=== PATIENT | male | born 1970 | race Caucasian/White ===

== ENCOUNTER 2024-05-05 07:49 | Emergency (ER) | payer OTHER ==
[2024-05-05] MEDS ORDERED: ONDANSETRON 4 MG/2 ML VIAL ONE ×2 (08:06→10:11)
[2024-05-05] MEDS ORDERED: MORPHINE 4 MG/ML SYR ONE (08:07)
[2024-05-05] MEDS ORDERED: KETOROLAC 30 MG/ML INJ ONE (08:07)
[2024-05-05 08:29] LABS: Absolute Basophils 0.1 K/uL (0-0.5); Absolute Eosinophils 0.1 K/uL (0-0.5); Absolute Lymphocytes (CBC) 1.3 K/uL (0.7-4.9); Absolute Monocytes 0.7 K/uL (0.1-1.3); Absolute Neutrophil 10.3 K/uL (1.8-8.0); Basophils % 0.6 % (0-1.3); Eosinophils % 0.7 % (0-4.4); Hematocrit 51.3 % (39.6-49.0); Hemoglobin 16.7 g/dL (13.6-17.9); Lymphocytes % 10.5 % (15.3-44.8); MCH 29.5 pg (27.0-35.0); MCHC 32.6 g/dL (32.0-36.0); MCV 90.5 fL (80-100); MPV 7.8 fL (7.6-11.3); Monocytes % 5.9 % (3.3-12.3); Neutrophils % 82.3 % (41.7-73.7); Platelets 285 thou/uL (152-406); RBC Red Blood Cell Count 5.67 M/uL (4.33-5.43); Red Cell Distribution Width 13.7 % (12.1-15.2)
--- NOTE | 2024-05-05 08:30 | RAD REPORT ---
EXAMINATION: CT ABDOMEN AND PELVIS WITHOUT CONTRAST CLINICAL INDICATION: ABD PAIN TECHNIQUE: CT abdomen and pelvis was performed, without IV contrast, as per department protocol. Axia l, sagittal and coronal reconstructions were obtained. One or more of the following dose reduction techniques were used: Automated exposure control, adjustment of the mA and kV according to the patien t size, and iterative reconstruction. Unless otherwise specified, incidental findings do not require dedicated imaging follow-up. COMPARISON: 07/13/2008 FINDINGS: The lack of intravenous contrast limits the sensitivity of this exam for evaluation of solid visceral organs, vascular structures, and retroperitoneum. LOWER CHEST: The visualized lung bases are clear. LIVER: There is a 15 mm cyst superior anterior right lobe of the liver suspected. No aggressive liver lesion or biliary dilatation. Cholecystectomy clips. SPLEEN: Normal size. No focal lesion. PANCREAS: No mass, ductal dilation, or shelby-pancreatic fluid. ADRENALS: Normal; no mass. KIDNEYS AND URETERS: 4 mm calculus is seen at the left UVJ resulting in mild left hydronephrosis and hydroureter. No right-sided stone or hydronephrosis. URINARY BLADDER: Normal contour. GASTROINTESTINAL TRACT: No evidence of bowel obstruction, significant free fluid, free air or abscess . Sigmoid diverticulosis coli without diverticulitis. APPENDIX: Normal appendix. LYMPH NODES: No lymphadenopathy. MUSCULOSKELETAL: Moderate lower lumbar degenerative changes. ADDITIONAL FINDINGS: None. IMPRESSION: 4 mm stone left UVJ resulting in mild left hydronephrosis.
[2024-05-05] MEDS ORDERED: Levofloxacin500mg IV 500 MG/100 ML BAG IV ONE (08:31)
[2024-05-05] MEDS ORDERED: NA CHLORIDE 0.9% 1,000 ML ONE ×2 (08:31→09:10)
[2024-05-05] MEDS ORDERED: FAMOTIDINE 20 MG/2 ML VIAL IV ONE (08:31)
[2024-05-05 08:37] LABS: Albumin 3.7 g/dL (3.4-5.0); Albumin/Globulin Ratio 0.9 (1.1-1.8); Anion Gap 6.1 mEq/L (5.0-15.0); Bilirubin Total 0.7 mg/dL (0.2-1.0); Globulin 3.9 g/dL (2.3-3.5); Potassium 4.1 mEq/L (3.5-5.1); Protein, Total 7.6 g/dL (6.4-8.2)
[2024-05-05] MEDS ORDERED: TAMSULOSIN 0.4 MG SR CAP ONE (09:10)
[2024-05-05] MEDS ORDERED: HYDROMORPHONE HCL 1 MG/ML INJ ONE ×2 (09:10→10:11)
--- NOTE | 2024-05-05 09:10 | RAD REPORT ---
EXAMINATION: ULTRASOUND DUPLEX OF SCROTUM AND TESTICLES CLINICAL INDICATION: Male, 53 years, PAIN TECHNIQUE: Duplex scan of the scrotal contents was performed including real-time color and spectral D oppler ultrasonography with arterial inflow and venous outflow. COMPARISON: CT dated same date FINDINGS: RIGHT TESTICLE AND EPIDIDYMIS: The right testicle is normal in size, measuring 3.3 x 2.4 x 1.8 cm. Normal, homogeneous echotexture with no focal lesion seen. The right epididymis is normal. Color Doppler flow in the right testicle is normal. LEFT TESTICLE AND EPIDIDYMIS: The left testicle is normal in size, measuring 3.2 x 1.7 x 2.2 cm. Normal, homogeneous echotexture with no focal lesion seen. The left epididymis is normal. Color Doppler flow in the left testicle is normal. ADDITIONAL FINDINGS: None. IMPRESSION: No acute or significant abnormalities.
--- NOTE | 2024-05-05 09:23 | EDPHYS ---
Physician Documentation [facility] Name: Ashu Perez Age: 53 yrs Sex: Male : 1970 Arrival Date: 05/05/2024 Time: 07:49 Bed 4 Private MD: John Chaney ED Physician Yahir Almaguer HPI: 05/05 09:01 This 53 yrs old Male presents to ER via Ambulatory with complaints of Low juan francisco Back Pain, Testicular Pain. 09:01 The patient presents with pain that is acute, with no known mechanism of injury. The juan francisco symptoms are located in the left low back and left mid back. The pain radiates to the left low back and left mid back. The problem was sustained from unknown cause. Onset: The symptoms/episode began/occurred just prior to arrival. Modifying factors: The patient symptoms are alleviated by nothing, the patient symptoms are aggravated by nothing. Associated signs and symptoms: The patient has no apparent associated signs or symptoms. Severity of symptoms: At their worst the symptoms were moderate, in the emergency department the symptoms are unchanged. The patient has not experienced similar symptoms in the past. Historical: - Allergies: 08:02 No Known Allergies; iw - PMHx: 08:02 neck pain; prostate cancer; iw - PSHx: 08:02 prostate; iw - Immunization history:: Adult Immunizations up to date. - Infectious Disease History:: Denies. - Social history:: Smoking status: Patient reports the use of cigarette tobacco products. - Family history:: not pertinent. ROS: 09:01 Constitutional: Negative for fever, chills, and weight loss, Eyes: Negative for injury, juan francisco pain, redness, and discharge, ENT: Negative for injury, pain, and discharge, Neck: Negative for injury, pain, and swelling, Cardiovascular: Negative for chest pain, palpitations, and edema, Respiratory: Negative for shortness of breath, cough, wheezing, and pleuritic chest pain, Back: Negative for injury and pain, : Negative for injury, bleeding, discharge, and swelling, MS/Extremity: Negative for injury and deformity, Skin: Negative for injury, rash, and discoloration, Neuro: Negative for headache, weakness, numbness, tingling, and seizure, Psych: Negative for depression, anxiety, suicide ideation, homicidal ideation, and hallucinations, Allergy/Immunology: Negative for hives, rash, and allergies, Endocrine: Negative for neck swelling, polydipsia, polyuria, polyphagia, and marked weight changes, Hematologic/Lymphatic: Negative for swollen nodes, abnormal bleeding, and unusual bruising, 09:01 Abdomen/GI: Positive for abdominal pain, of the anterior aspect of left lateral abdomen, posterior aspect of left lateral abdomen and left lower quadrant, Exam: 09:01 Constitutional: This is a well developed, well nourished patient who is awake, alert, juan francisco and in no acute distress. Head/Face: Normocephalic, atraumatic. Eyes: Pupils equal round and reactive to light, extra-ocular motions intact. Lids and lashes normal. Conjunctiva and sclera are non-icteric and not injected. Cornea within normal limits. Periorbital areas with no swelling, redness, or edema. ENT: Nares patent. No nasal discharge, no septal abnormalities noted. Tympanic membranes are normal and external auditory canals are clear. Oropharynx with no redness, swelling, or masses, exudates, or evidence of obstruction, uvula midline. Mucous membranes moist. Neck: Trachea midline, no thyromegaly or masses palpated, and no cervical lymphadenopathy. Supple, full range of motion without nuchal rigidity, or vertebral point tenderness. No Meningismus. Chest/axilla: Normal chest wall appearance and motion. Nontender with no deformity. No lesions are appreciated. Cardiovascular: Regular rate and rhythm with a normal S1 and S2. No gallops, murmurs, or rubs. Normal PMI, no JVD. No pulse deficits. Respiratory: Lungs have equal breath sounds bilaterally, clear to auscultation and percussion. No rales, rhonchi or wheezes noted. No increased work of breathing, no retractions or nasal flaring. Back: No spinal tenderness. No costovertebral tenderness. Full range of motion. Skin: Warm, dry with normal turgor. Normal color with no rashes, no lesions, and no evidence of cellulitis. MS/ Extremity: Pulses equal, no cyanosis. Neurovascular intact. Full, normal range of motion. Neuro: Awake and alert, GCS 15, oriented to person, place, time, and situation. Cranial nerves II-XII grossly intact. Motor strength 5/5 in all extremities. Sensory grossly intact. Cerebellar exam normal. Normal gait. Psych: Awake, alert, with orientation to person, place and time. Behavior, mood, and affect are within normal limits. 09:01 Abdomen/GI: Inspection: distension, that is mild, Liver: no appreciated palpable abnormalities, Hernia: not appreciated, 09:01 : CVA tenderness, is absent, Male external genitalia: normal, Bladder: is normal, Sexual behavior: the patient is sexually active, and reports a single partner, Vital Signs: 08:01 BP 159 / 101; Pulse 83; Resp 16; Temp 97.1; Pulse Ox 100% on R/A; Weight 93.89 kg; iw Height 5 ft. 10 in. ; Pain 9/10; 09:10 BP 141 / 81; Pulse 82; Resp 16; Pulse Ox 97% on R/A; db 10:00 BP 150 / 103; Pulse 78; Resp 18; Pulse Ox 100% on R/A; db 08:01 Body Mass Index 29.70 (93.89 kg, 177.8 cm) iw 08:01 Pain Scale: Adult iw MDM: 07:57 Patient medically screened. juan francisco 09:04 Differential diagnosis: strain, UTI. Data reviewed: vital signs, nurses notes, lab test juan francisco result(s), radiologic studies, CT scan. Consideration of Admission/Observation Escalation of care including admission/observation considered. I considered the following discharge prescriptions or medication management in the emergency department Medications were administered in the Emergency Department. See MAR. Independent interpretation of the following test(s) in the Emergency Department CT Scan: My interpretation is ct stone. Test considered but Not performed: Ultrasound no renal usg. Care significantly affected by the following chronic conditions: Obesity, Cancer, neck pain. Counseling: I had a detailed discussion with the patient and/or guardian regarding the historical points, exam findings, and any diagnostic results supporting the discharge/admit diagnosis, lab results, radiology results, the need for outpatient follow up, for definitive care, a family practitioner, a urologist. 05/05 07:59 Order name: CBC with Diff; Complete Time: 08:55 juan francisco 05/05 07:59 Order name: CMP; Complete Time: 08:55 juan francisco 05/05 07:59 Order name: Lipase; Complete Time: 08:55 juan francisco 05/05 07:59 Order name: US Scrotum Testicles; Complete Time: 09:22 juan francisco 05/05 07:59 Order name: CT Stone Protocol; Complete Time: 08:55 juan francisco 05/05 07:59 Order name: IV Saline Lock; Complete Time: 08:13 [facility] 05/05 07:59 Order name: Labs collected and sent; Complete Time: 08:13 [facility] Administered Medications: 08:08 Drug: HYDROmorphone IVP 1 mg IVP once Route: IVP; Site: right antecubital; db 09:38 Follow up: Response: No adverse reaction; Pain is decreased db 08:12 Drug: TORadol - Ketorolac IVP 15 mg IVP once Route: IVP; Site: right antecubital; iw 09:28 Follow up: Response: No adverse reaction db 08:13 Drug: Ondansetron IVP 4 mg IVP once; over 2 minutes Route: IVP; Site: right antecubital;iw 09:28 Follow up: Response: No adverse reaction db 08:13 Drug: morphine IVP or IV 4 mg IVP once over 4 mins Route: IVP; Infused Over: 4 mins; iw Site: right antecubital; 09:28 Follow up: Response: No adverse reaction db 09:08 Drug: NS 0.9% IV 1000 ml IV at 1 bolus Per protocol; 1000 mL bolus Route: IV; Rate: 1 db bolus; Site: right antecubital; 10:18 Follow up: Response: No adverse reaction; IV Status: Completed infusion; IV Intake: db 1000ml 09:08 Drug: Famotidine IVP 20 mg IVP once; dilute with 10 mL 0.9% NaCl; give over 2 minutes db Route: IVP; Site: right antecubital; 10:36 Follow up: Response: No adverse reaction db 09:08 Drug: levofloxacin IVPB 500 mg 100 ml IVPB once over 60 mins Volume: 100 ml; Route: db IVPB; Infused Over: 60 mins; Site: right antecubital; 10:36 Follow up: Response: No adverse reaction; IV Status: Completed infusion; IV Intake: db 100ml 09:08 Drug: Flomax PO 0.4 mg PO once Route: PO; db 10:18 Follow up: Response: No adverse reaction db 09:08 Drug: NS 0.9% IV 1000 ml IV at 1 bolus Per protocol; 1000 mL bolus Route: IV; Rate: 1 db bolus; Site: right antecubital; 10:36 Follow up: Response: No adverse reaction; IV Status: Completed infusion; IV Intake: db 1000ml 10:10 Drug: Ondansetron IVP 4 mg IVP once; over 2 minutes Route: IVP; Site: right antecubital;db 10:36 Follow up: Response: No adverse reaction db 10:12 Drug: HYDROmorphone IVP 1 mg IVP once Route: IVP; Site: right antecubital; db 10:36 Follow up: Response: No adverse reaction; Pain is decreased db Disposition Summary: 05/05/24 09:23 Discharge Ordered Notes: Location: Home juan francisco Problem: new juan francisco Symptoms: have improved juan francisco Condition: Stable juan francisco Diagnosis - UTI/ Urinary tract infection, site not specified juan francisco - Hydronephrosis with renal and ureteral calculous obstruction - 4 mm distal left juan francisco Followup: juan francisco - With: John Chaney MD - When: 2 - 3 days - Reason: Recheck today's complaints, Continuance of care, Re-evaluation by your physician Followup: juan francisco - With: Td Eric MD - When: 2 - 3 days - Reason: Recheck today's complaints, Continuance of care, Re-evaluation by your physician Discharge Instructions: - Discharge Summary Sheet juan francisco - Kidney Stones juan francisco - Urinary Tract Infection, Adult juan francisco - Kidney Stones, [id number] juan francisco - Urinary Tract Infection, Adult, [id number] juan francisco - Hydronephrosis juan francisco - Dietary Guidelines to Help Prevent Kidney Stones juan francisco Forms: - Medication Reconciliation Form juan francisco - Antibiotic Education juan francisco - Prescription Opioid Use juan francisco - Patient Portal Instructions juan francisco - Leadership Thank You Letter juan francisco - Work release form iw - Family Work Release iw Prescriptions: - Flomax 0.4 mg Oral capsule - take 1 capsule ORAL route once; 30 capsule; Refills: 0, Product Selection juan francisco Permitted - acetaminophen-codeine 300-30 mg Oral tablet - take 2 tablet ORAL route every 6 hours; 24 tablet; Refills: 0, Product juan francisco Selection Permitted - ondansetron 4 mg Oral Tablet,disintegrating - take 1 tablet ORAL route every 6-8 hours for 5 days; 20 tablet; Refills: 0, juan francisco Product Selection Permitted - Cipro 500 mg Oral Tablet - take 1 tablet ORAL route every 12 hours for 7 days; 14 tablet; Refills: 0, [facility] Product Selection Permitted Signatures: Dispatcher [employer] Yahir Perez MD MD cha Williams, Irene ROBE RN Beata Alejandre RN RN db Corrections: (The following items were deleted from the chart) 08:03 08:02 PMHx: None; molly barnes
--- NOTE | 2024-05-05 09:23 | ER ---
Nurse's Notes [facility] Name: Ashu Perez Age: 53 yrs Sex: Male : 1970 Arrival Date: 05/05/2024 Time: 07:49 Bed 4 Private MD: John Chaney Diagnosis: UTI/ Urinary tract infection, site not specified;Hydronephrosis with renal and ureteral calculous obstruction-4 mm distal left Presentation: 05/05 08:01 Chief complaint: Patient states: left lower back pain, radiates to left groin, started iw this morning, can't urinate. Coronavirus screen: At this time, the client does not indicate any symptoms associated with coronavirus-19. Ebola Screen: No symptoms or risks identified at this time. Initial Sepsis Screen: Does the patient meet any 2 criteria? No. Patient's initial sepsis screen is negative. Does the patient have a suspected source of infection? No. Patient's initial sepsis screen is negative. Risk Assessment: Do you want to hurt yourself or someone else? Patient reports no desire to harm self or others. 08:01 Method Of Arrival: Ambulatory iw 08:01 Acuity: MERCEDES 3 iw Historical: - Allergies: 08:02 No Known Allergies; iw - PMHx: 08:02 neck pain; prostate cancer; iw - PSHx: 08:02 prostate; iw - Immunization history:: Adult Immunizations up to date. - Infectious Disease History:: Denies. - Social history:: Smoking status: Patient reports the use of cigarette tobacco products. - Family history:: not pertinent. Screenin:34 [facility] ED Fall Risk Assessment (Adult) History of falling in the last 3 months, db including since admission No falls in past 3 months (0 pts) Confusion or Disorientation No (0 pts) Intoxicated or Sedated No (0 pts) Impaired Gait No (0 pts) Mobility Assist Device Used No (0 pt) Altered Elimination No (0 pt) Score/Fall Risk Level 0 - 2 = Low Risk Oriented to surroundings, Maintained a safe environment. Abuse screen: Denies threats or abuse. Denies injuries from another. Nutritional screening: No deficits noted. Tuberculosis screening: No symptoms or risk factors identified. Assessment: 09:10 Reassessment: Patient appears in no apparent distress at this time. Patient and/or db family updated on plan of care and expected duration. Pain level reassessed. Patient is alert, oriented x 3, equal unlabored respirations, skin warm/dry/pink. General: Appears in no apparent distress. comfortable, Behavior is calm, cooperative. Pain: Complains of pain in back. Neuro: Level of Consciousness is awake, alert, obeys commands, Oriented to person, place, time, situation. Respiratory: Airway is patent Respiratory effort is even, unlabored, Respiratory pattern is regular, symmetrical. 10:34 Reassessment: Patient appears in no apparent distress at this time. Patient and/or db family updated on plan of care and expected duration. Pain level reassessed. Patient is alert, oriented x 3, equal unlabored respirations, skin warm/dry/pink. Patient states feeling better. Patient states symptoms have improved. Vital Signs: 08:01 BP 159 / 101; Pulse 83; Resp 16; Temp 97.1; Pulse Ox 100% on R/A; Weight 93.89 kg; iw Height 5 ft. 10 in. ; Pain 9/10; 09:10 BP 141 / 81; Pulse 82; Resp 16; Pulse Ox 97% on R/A; db 10:00 BP 150 / 103; Pulse 78; Resp 18; Pulse Ox 100% on R/A; db 08:01 Body Mass Index 29.70 (93.89 kg, 177.8 cm) iw 08:01 Pain Scale: Adult iw ED Course: 07:53 Patient arrived in ED. gm2 07:53 John Chaney MD is Private Physician. gm2 07:57 Yahir Almaguer MD is Attending Physician. juan francisco 08:02 Triage completed. iw 08:03 Arm band placed on. iw 08:10 Inserted saline lock: 22 gauge in right antecubital area, using aseptic technique. db Blood collected. Flushed with 10 mL NS. 08:18 CT Stone Protocol In Process Unspecified. EDMS 08:22 Beata Cunningham, ROBE is Primary Nurse. db 08:53 US Scrotum Testicles In Process Unspecified. EDMS 09:23 John Chaney MD is Referral Physician. juan francisco 09:23 Td Eric MD is Referral Physician. juan francisco 10:34 Patient has correct armband on for positive identification. Call light in reach. Side db rails up X 1. Provided Education on: DISCHARGE. Pulse ox on. NIBP on. Warm blanket given. 10:34 No provider procedures requiring assistance completed. IV discontinued, intact, db bleeding controlled, No redness/swelling at site. Administered Medications: 08:08 Drug: HYDROmorphone IVP 1 mg IVP once Route: IVP; Site: right antecubital; db 09:38 Follow up: Response: No adverse reaction; Pain is decreased db 08:12 Drug: TORadol - Ketorolac IVP 15 mg IVP once Route: IVP; Site: right antecubital; iw 09:28 Follow up: Response: No adverse reaction db 08:13 Drug: Ondansetron IVP 4 mg IVP once; over 2 minutes Route: IVP; Site: right antecubital;iw 09:28 Follow up: Response: No adverse reaction db 08:13 Drug: morphine IVP or IV 4 mg IVP once over 4 mins Route: IVP; Infused Over: 4 mins; iw Site: right antecubital; 09:28 Follow up: Response: No adverse reaction db 09:08 Drug: NS 0.9% IV 1000 ml IV at 1 bolus Per protocol; 1000 mL bolus Route: IV; Rate: 1 db bolus; Site: right antecubital; 10:18 Follow up: Response: No adverse reaction; IV Status: Completed infusion; IV Intake: db 1000ml 09:08 Drug: Famotidine IVP 20 mg IVP once; dilute with 10 mL 0.9% NaCl; give over 2 minutes db Route: IVP; Site: right antecubital; 10:36 Follow up: Response: No adverse reaction db 09:08 Drug: levofloxacin IVPB 500 mg 100 ml IVPB once over 60 mins Volume: 100 ml; Route: db IVPB; Infused Over: 60 mins; Site: right antecubital; 10:36 Follow up: Response: No adverse reaction; IV Status: Completed infusion; IV Intake: db 100ml 09:08 Drug: Flomax PO 0.4 mg PO once Route: PO; db 10:18 Follow up: Response: No adverse reaction db 09:08 Drug: NS 0.9% IV 1000 ml IV at 1 bolus Per protocol; 1000 mL bolus Route: IV; Rate: 1 db bolus; Site: right antecubital; 10:36 Follow up: Response: No adverse reaction; IV Status: Completed infusion; IV Intake: db 1000ml 10:10 Drug: Ondansetron IVP 4 mg IVP once; over 2 minutes Route: IVP; Site: right antecubital;db 10:36 Follow up: Response: No adverse reaction db 10:12 Drug: HYDROmorphone IVP 1 mg IVP once Route: IVP; Site: right antecubital; db 10:36 Follow up: Response: No adverse reaction; Pain is decreased db Medication: 10:34 VIS not applicable for this client. db Intake: 10:18 IV: 1000ml; Total: 1000ml. db 10:36 IV: 1000ml; Total: 2000ml. db 10:36 IV: 100ml; Total: 2100ml. db Outcome: 09:23 Discharge ordered by . juan francisco 10:34 Discharged to home ambulatory, with family, [place] 10:34 Condition: stable 10:34 Discharge instructions given to patient, family, Instructed on discharge instructions, follow up and referral plans. Prescriptions given X 4, 10:38 Patient left the ED. db Signatures: Dispatcher [employer] EDCT Yahir Almaguer MD MD cha Williams, Irene, RN RN Beata Alejandre, RN RN Carol Pacheco gm2 Corrections: (The following items were deleted from the chart) 08:03 08:02 PMHx: None; molly barnes
[2024-05-07 15:23] VITALS: TEMP 97.1
[2024-05-07 15:27] VITALS: BP 150/103; O2SAT 100
== END 2024-05-05 10:38 | disposition home or self-care (01) ==
LOC: ER 07:49
DX: N39.0 Urinary tract infection, site not specified (principal); N13.2 Hydronephrosis with renal and ureteral calculous obstruction; Z72.0 Tobacco use
CPT/HCPCS: 36415; 74176; 76377; 76870; 80053; 83690; 85025; 96365; 96375; 99284; J1170; J2405; J7030